=== PATIENT | male | born 1990 | race Caucasian/White ===

== ENCOUNTER 2021-09-27 08:05 | Emergency (ER) | payer OTHER, SELFPAY ==
[2021-09-27 08:14] VITALS: BP 139/95; PULSE 61; RESP 16; TEMP 36.5; O2SAT 99
--- NOTE | 2021-09-27 08:15 | ED.GENADULT ---
HPI - General Adult General Chief complaint: Extremity Problem,Nontraumatic Stated complaint: left shoulder pain Time Seen by Provider: 09/27/21 08:15 Source: patient, RN notes reviewed and old records reviewed Mode of arrival: ambulatory Limitations: no limitations History of Present Illness HPI narrative: 31 year old male presents to [facility] care with complaints of pain to his left neck, posterior left shoulder with some radiation down his left arm to elbow area since yesterday at 1430 which occurred gradually while he was driving. Patient denies any known injury to neck ,upper back or left shoulder. Patient states that he has some tingling and numbness to his left arm and fingers intermittently, denies any chest pain , shortness of breath or any episodes of nausea or diaphoresis. Patient has full ROM of his left shoulder, pain mainly to left side of his neck and to left posterior shoulder region, reports he has been taking Ibuprofen. Patient reports that he had COVID 2 weeks ago.Patient works for [employer] and does a lot of lifting at his job. MD complaint: Neck pain, posterior left shoulder, down left arm to elbow Onset (ago): day(s) (1) Radiation: other (down left arm to elbow) Severity scale (1-10): 7 Treatments prior to arrival: NSAID Related Data Allergies Allergy/AdvReac Type Severity Reaction Status Date / Time Penicillins Allergy Intermediate Hives Verified 09/27/21 08:20 Review of Systems Review of Systems: CONSTITUTIONAL: Denies fever, chills, or sweats. EYES: Denies visual changes, redness, or discharge. ENT: Denies rhinorrhea, congestion, sore throat, or otalgia. CARDIOVASCULAR: Denies chest pain, palpitations, or edema. RESPIRATORY: Denies cough or dyspnea. GASTROINTESTINAL: Denies abdominal pain, nausea, vomiting, or diarrhea. GENITOURINARY: Denies dysuria or hematuria. SKIN: Denies rash or itching. MUSCULOSKELETAL: Left neck pain, posterior left shoulder, radiates down left arm, or myalgia. NEUROLOGIC: Denies headache, numbness, or weakness. PSYCHIATRIC: Denies anxiety or depression. All systems reviewed & are unremarkable except as noted in HPI and below PMFSH Past Medical History Medical History (Updated 09/28/21 @ 08:21 by Terri Sorto NP) COVID-19 2 weeks ago from 09/27/2021 Social History Social History (Updated 09/28/21 @ 08:22 by Terri Sorto NP) Smoking status: Former smoker Alcohol intake: current Alcohol use details: social Substance use type: does not use Living arrangements: with family Gender identity (if verbalized by the patient): Male Comments At time of signature, agree with nursing past medical, surgical, social and family history. There is no relevant family history pertinent to the presenting complaint Exam Narrative: GENERAL: Well-appearing, well-nourished, and in no acute distress. HEAD: Normocephalic, atraumatic. EYES: PERRLA and EOMI. ENT: Nares clear, no rhinorrhea or epistaxis. Mucous membranes moist.TM's normal with good light reflex, throat pink with no lesions or exudates, no tonsil enlargement NECK: Supple with increased pain to left neck when moving neck to right, no lymphadenopathy CHEST: Clear to auscultation. No respiratory distress.SAO2 99% on room air no tachypnea noted HEART: Regular rate and rhythm. No murmur heard. Normal peripheral pulses. ABDOMEN: Soft, nontender, nondistended, normal active bowel sounds. EXTREMITIES: Normal range of motion. No edema.Full ROM of left shoulder without increased pain, pain to left lateral posterior aspect of neck with pain to left posterior shoulder area, states some pain radiation down left arm to elbow with stated tingling and numbness to arm and fingers intermittently, patient has strong pulses to his left arm, fingers warm and pink with brisk capillary refill. SKIN: Warm, dry, no rash. NEURO: No focal deficits. Alert and oriented x3. Course Course Level of Care: Express Care Visit Vital Signs Vital signs:
== END 2021-09-27 08:43 | disposition home or self-care (01) ==
PROVIDERS: Emergency Provider Registered Nurse
DX: S16.1XXA Strain of muscle, fascia and tendon at neck level, initial encounter (principal); X58.XXXA Exposure to other specified factors, initial encounter; M25.512 Pain in left shoulder; Z87.891 Personal history of nicotine dependence; Z86.16 Personal history of COVID-19
CPT/HCPCS: 99203; G0463